=== PATIENT | female | born 1960 | race Caucasian/White ===

== ENCOUNTER → 2022-09-24 | Outpatient (CLI) | payer OTHER, SELFPAY ==
--- NOTE | 2022-09-24 | IMM_PTH ---
PATIENT: GLENN HOBSON LOC: [facility]#:[id number] AGE/SX: 62/F ROOM: RE09/24/[address]: Dr. Chaparro Rowland MD : 1960 BED: DIS: 09/24/2022 SPEC #: [id number] RECD: 09/27/22 14:07 STATUS: EVERETT REPuneet #: [id number] MICA: 09/24/22 00:[address]: Chaparro Rowland DEPT: IMMUNOHISTOCHEMISTRY RECD BY: Marci Todd ENTERED: 09/27/22 14:09 SP TYPE: IMMUNO OTHR DR: Dr. Guilherme Saavedra MD Tissues: Lymph node of neck, NOS Procedures: BCL-2 (add) CD3 (add) CD45 (add) CD5 (add) CD79A (add) CALLI (add) Pankeratin (initial) PHYSICIAN & INSTITUTION [place] [address] SPECIMEN INFORMATION: Tissue Source: Right cervical lymph node tissue Clinical Info: Right cervical lymph node, right superior thyroid nodule Specimen Number: [id number] CPT code: 43751, 14123 x7 METHODOLOGY: Deparaffinized sections of prefer/formalin-fixed tissue or PAP/DQ stained slides are incubated with monoclonal/polyclonal antibodies/oligonucleotide probes. Localization is made via biotin free immunoperoxidase method. Appropriate controls are performed and reacted as expected. Results on target cell population are indicated in the following table: RESULTS: ANTIBODY / CLONE RESULT AE1-3 (AE1/AE3/PCK26) negative CD3 (PS1) positive CD5 (SP10) positive CD45 (RP2/18) positive CD79a (11E3) positive BCL-2 (bcl-2/100/D5) positive CALLI (E29) negative CD23 (1B12) negative These tests were developed and their performance characteristics determined by [facility]. They may not have been cleared or approved by the U.S. Food and Drug Administration. The FDA has determined that such clearance or approval is not necessary. The above immunohistochemical/dualISH markers are ordered and reviewed by the Pathologist. INTERPRETATION: Right cervical lymph node tissue, biopsy: Polytypic lymphoid tissue. AM:margarito 09/29/22
--- NOTE | 2022-09-24 | IMM_PTH ---
PATIENT: GLENN HOBSON LOC: [facility]#:[id number] AGE/SX: 62/F ROOM: RE09/24/[address]: Dr. Chaparro Rowland MD : 1960 BED: DIS: 09/24/2022 SPEC #: [id number] RECD: 09/27/22 14:05 STATUS: EVERETT REPuneet #: [id number] MICA: 09/24/22 00:[address]: Chaparro Rowland DEPT: IMMUNOHISTOCHEMISTRY RECD BY: Marci Todd ENTERED: 09/27/22 14:07 SP TYPE: IMMUNO OTHR DR: Dr. Guilherme Saavedra MD Tissues: A - Thyroid gland, NOS Procedures: BCL-2 (add) CD20 (add) CD3 (add) CD45 (add) CD5 (add) CD79A (add) CK20 (add) CK5-6 (add) CK7 (add) CALLI (add) KI-67 (add) MPO (add) TTF1 (add) Pankeratin (initial) P40 (add) PHYSICIAN & [address] [address] SPECIMEN INFORMATION: Tissue Source: A ? Fine needle aspiration, right superior thyroid nodule Clinical Info: Right superior thyroid nodule Specimen Number: CPT code: 96656, 80412 x14 METHODOLOGY: Deparaffinized sections of prefer/formalin-fixed tissue or PAP/DQ stained slides are incubated with monoclonal/polyclonal antibodies/oligonucleotide probes. Localization is made via biotin free immunoperoxidase method. Appropriate controls are performed and reacted as expected. Results on target cell population are indicated in the following table: RESULTS: ANTIBODY / CLONE RESULT Block A AE1-3 (AE1/AE3/PCK26) negative CK7 (OV-TL12/30) negative CK20 (KS20.8) negative CD3 (PS1) positive CD5 (SP10) positive CD20 (L26) negative CD45 (RP2/18) positive CD79a (11E3) positive BCL-2 (bcl-2/100/D5) negative MPO (polyclonal) negative TTF-1 (8G7G3/1) negative CK5-6 (D5 & 1684) negative P40 (BC28) negative CALLI (E29) negative Ki-67 (30-9) positive, rare These tests were developed and their performance characteristics determined by [facility]. They may not have been cleared or approved by the U.S. Food and Drug Administration. The FDA has determined that such clearance or approval is not necessary. The above immunohistochemical/dualISH markers are ordered and reviewed by the Pathologist. INTERPRETATION: A. Fine needle aspiration, right superior thyroid nodule: Polytypic lymphoid cells. Comment: The specimen is hypo cellular AM:cc 09/29/22
[2022-09-24 08:45] LABS: Calcium,Total 9.6 mg/dL (8.5-10.1); Free T3 2.4 pg/mL (2.18-3.98); T4 Total, Thyroxin 6.7 ug/dL (4.8-13.9)
[2022-09-24 09:28] LABS: PTHIN 57.7 pg/mL (18.4-80.1)
[2022-09-24 09:32] LABS: Vitamin D,25 Hydroxy 20.1 ng/mL
--- NOTE | 2022-09-24 10:13 | FLU_PTH ---
PATIENT: GLENN HOBSON [facility]: [facility]#:[id number] AGE/SX: 62/F ROOM: RE09/24/[address]: Dr. Chaparro Rowland MD : 1960 BED: DIS: 09/24/2022 SPEC #: [id number] RECD: 09/24/22 11:30 STATUS: EVERETT IRENE #: [id number] MICA: 09/24/22 10:[address]: Chaparro Rowland DEPT: CYTOLOGY RECD BY: Chandra Gillespie ENTERED: 09/24/22 12:36 SP TYPE: Fluid OTHR DR: Dr. Guilherme Saavedra MD Tissues: A - Thyroid gland, NOS B - Thyroid gland, NOS Procedures: Special Stain Group II Surgery Specimen Level IV Cytospin Fluid HEADER OPERATION: Biopsy right cervical lymph node, biopsy right superior thyroid nodule PRE-OP DIAGNOSIS: Right superior thyroid nodule; right cervical lymph node TISSUE SUBMITTED: A ? FNA, right superior thyroid nodule tissue fluid, B - FNA, right superior thyroid nodule x6 slides DIAGNOSIS CYTOLOGY A. Fine needle aspiration, right superior thyroid nodule (cytospin and cell block): Polymorphous lymphocytes. See comment. B. Fine needle aspiration, right superior thyroid nodule (smears): Polymorphous lymphocytes. See comment. AM:rg 09/27/2022 COMMENT A. Immunohistochemistry ([id number]) supports the above diagnosis. B. There is no evidence of a lymphoid neoplasm. Please correlate with corresponding surgical specimen ([id number]). This case was reviewed and diagnosis discussed with Dr. Rowland on 09/30/[address] Macedo. Case has been reviewed in consultation with Dr. Gregory who concurs with the above diagnosis. IDC:SJ CYTOLOGY STUDY Slides are reviewed. CYTOLOGY GROSS A - Received is 15 ml of pink fluid labeled with the patient's name and and designated per the requisition as right superior thyroid nodule. Submitted for cytology preparation including cell block. B - Received are six smears labeled with the patient's name and designated per the requisition as right superior thyroid nodule. Submitted for staining. / sharona 09/24/2022 TC:5 CPT: 60921 x2, 97583
--- NOTE | 2022-09-24 10:15 | LYMN_PTH ---
PATIENT: GLENN HOBSON LOC: [facility]#:[id number] AGE/SX: 62/F ROOM: RE09/24/[address]: Dr. Chaparro Rowland MD : 1960 BED: DIS: 09/24/2022 SPEC #: [id number] RECD: 09/24/22 11:30 STATUS: EVERETT IRENE #: [id number] MICA: 09/24/22 10:[address]: Chaparro Rowland DEPT: SURGICAL PATHOLOGY RECD BY: Chandra Gillespie ENTERED: 09/24/22 13:30 SP TYPE: LYMPH NODE OTHR DR: Dr. Guilherme Saavedra MD Tissues: LYMPH NODE BIOPSY Procedures: Special Stain Group II Surgery Specimen Level IV HEADER OPERATION: Biopsy right cervical lymph node, biopsy right superior thyroid nodule PRE-OP DIAGNOSIS: Right cervical lymph node, right superior thyroid nodule TISSUE SUBMITTED: Right cervical lymph node tissue MICROSCOPIC DIAGNOSIS Right cervical lymph node, needle core biopsy (smears): Polymorphous lymphocytes. AM:sharona 09/27/2022 COMMENT Immunohistochemistry ([id number]) supports the above diagnosis. Please correlate with corresponding cytology specimen ([id number]). Case has been reviewed in consultation with Dr. Gregory who concurs with the above diagnosis. IDC:ROGE MICROSCOPIC DESCRIPTION Slides are reviewed. GROSS DESCRIPTION Received in fixative is one container labeled with the patient's name and designated right cervical lymph node tissue. The specimen consists of multiple elongated fragments of gómez soft tissue that in aggregate measure 1 x 0.2 x 0.1 cm. The specimen is totally submitted in one cassette. One core is submitted for flow cytometry studies. Two Diff-Quik and two pap smears are prepared at the time of core biopsy. A specimen is also saved in RPMI for possible flow cytometry study. / ROGE:sharona 09/24/2022 TC:5 CPT: 56443, 55447
== END | disposition home or self-care (01) ==
PROVIDERS: PCP Family Medicine; Referring Provider Surgery; Visit Provider Surgery
DX: R59.0 Localized enlarged lymph nodes (principal); E04.1 Nontoxic single thyroid nodule
CPT/HCPCS: 36415; 82306; 82310; 83970; 84436; 84443; 84481; 88108; 88305; 88313; 88341; 88342

== ENCOUNTER 2023-07-29 09:42 | Outpatient (CLI) | payer MEDICARE, SELFPAY ==
[2023-07-29 13:11] LABS: Vitamin D,25 Hydroxy 31.7 ng/mL
[2023-07-29 13:14] LABS: Ferritin 72 ng/mL (8-252)
[2023-08-02 11:08] LABS: Anti-Nuclear Antibody Test Negative (.); Vitamin D 1,25-Dihydroxy 46.7 pg/mL (24.8-81.5)
[2023-08-06 10:08] LABS: Zinc, Plasma or Serum 101 ug/dL (44-115)
== END 2023-07-29 23:59 | disposition home or self-care (01) ==
PROVIDERS: PCP Family Medicine; Referring Provider Physician Assistant Medical; Visit Provider Physician Assistant Medical
DX: L65.9 Nonscarring hair loss, unspecified (principal); E03.8 Other specified hypothyroidism; R53.83 Other fatigue; Z86.39 Personal history of other endocrine, nutritional and metabolic disease
CPT/HCPCS: 36415; 82306; 82652; 82728; 84630; 86038